=== PATIENT | female | born 1995 | race Caucasian/White ===

== ENCOUNTER 2020-12-23 04:35 | Emergency (ER) | payer OTHER ==
[2020-12-23 05:25] LABS: BASOPHILS # (AUTO) 0.1 10^3/uL (0.0-0.1); BASOPHILS % (AUTO) 0.7 %; EOSINOPHILS # (AUTO) 0.1 10^3/uL (0.0-0.7); EOSINOPHILS % (AUTO) 1.7 %; HCT - HEMATOCRIT 39.2 % (37.0-47.0); HGB - HEMOGLOBIN 13.3 g/dL (12.0-16.0); LYMPHOCYTES # (AUTO) 0.9 10^3/uL (1.5-3.5); LYMPHOCYTES % (AUTO) 11.4 %; MEAN CORPUSCULAR HEMOGLOBIN 28.7 pg (27.0-31.0); MEAN CORPUSCULAR HGB CONC 33.9 g/dL (32.0-36.0); MEAN CORPUSCULAR VOLUME 84.5 fL (81.0-99.0); MEAN PLATELET VOLUME 10.3 fL (7.9-10.8); MONOCYTES # (AUTO) 0.5 10^3/uL (0.0-1.0); MONOCYTES % (AUTO) 5.8 %; NEUTROPHILS # (AUTO) 6.6 10^3/uL (1.5-6.6); PLT - PLATELET COUNT 252 10^3/uL (130-450); RED BLOOD COUNT 4.64 10^6/uL (4.20-5.40); RED CELL DISTRIBUTION WIDTH 11.9 % (12.0-15.0); WHITE BLOOD COUNT 8.2 x10^3/uL (4.8-10.8)
[2020-12-23 05:38] LABS: ACETAMINOPHEN < 10 ug/mL (10-30); BUN - BLOOD UREA NITROGEN 9 mg/dL (6-20); CALCIUM 9.3 mg/dL (8.5-10.3); CARBON DIOXIDE - CO2 23 mmol/L (21-32); CHLORIDE 106 mmol/L (101-111); CREATININE 0.8 mg/dL (0.4-1.0); ETOH - ETHANOL < 5.0 mg/dL; GFR - MDRD 86 (>89); GLUCOSE 108 mg/dL (70-100); POTASSIUM 3.7 mmol/L (3.5-5.0); SALICYLATE < 6.0 mg/dL; SODIUM 137 mmol/L (135-145)
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
[2020-12-23 06:52] LABS: HCG,QUALITATIVE BLOOD NEGATIVE
[2020-12-23 06:55] LABS: MUDS CUTOFF CONCENTRATIONS CUTOFF CONC BELOW:
[2020-12-23 06:56] LABS: BILIRUBIN,URINE NEGATIVE (NEGATIVE); GLUCOSE, URINE (UA) NEGATIVE (NEGATIVE); KETONES,URINE (UA) NEGATIVE (NEGATIVE); LEUKOCYTE ESTERASE, URINE NEGATIVE (NEGATIVE); NITRITE,URINE NEGATIVE (NEGATIVE); OCCULT BLOOD,URINE NEGATIVE (NEGATIVE); PROTEIN,URINE NEGATIVE (NEGATIVE); UROBILINOGEN,URINE 0.2 (NORMAL) E.U./dL (NORMAL)
[2020-12-23 07:04] LABS: CLARITY,URINE CLEAR (CLEAR); HCG UR QUAL NEGATIVE
[2020-12-23 07:08] LABS: THC CANNABINOID SCREEN, URINE POSITIVE (NEGATIVE)
[2020-12-23 07:09] LABS: AMPHETAMINE SCREEN,URINE NEGATIVE (NEGATIVE); BARBITURATE SCREEN,UR NEGATIVE (NEGATIVE); BENZODIAZEPINES SCREEN, URINE NEGATIVE (NEGATIVE); COCAINE SCREEN URINE NEGATIVE (NEGATIVE); METHADONE SCREEN, URINE NEGATIVE (NEGATIVE); METHAMPHETAMINES SCREEN, URINE NEGATIVE (NEGATIVE); OPIATE SCREEN, URINE NEGATIVE (NEGATIVE); OXYCODONE SCREEN, URINE NEGATIVE (NEGATIVE); PROPOXYPHENE SCREEN, URINE NEGATIVE (NEGATIVE); TRICYCLIC ANTIDEPRESSANT,URINE NEGATIVE (NEGATIVE)
--- NOTE | 2020-12-23 08:18 | XRAY Report ---
PROCEDURE: Sacrum/Coccyx INDICATIONS: coccyx TECHNIQUE: 3 views of the sacrum and coccyx acquired. COMPARISON: None FINDINGS: Bones: No fractures or dislocations. No suspicious bony lesions. Soft tissues: Visualized bowel gas pattern is normal. No suspicious soft tissue densities. IMPRESSION: No trauma found. Source of pain is not seen. Follow-up MR scanning may be warranted for more accurate assessment. Reviewed by: Marlon Snow MD on 12/23/2020 8:16 AM PDT Approved by: Marlon Snow MD on 12/23/2020 8:16 AM PDT Station ID: [id number]
[2020-12-23 08:22] VITALS: BP 130/80
[2020-12-23] MEDS ORDERED: IBUPROFEN 600 MG TABLET PO STA (08:27)
--- NOTE | 2020-12-23 08:30 | TELEPSYCH PHYS NOTE ---
Telepsych Note - PSYCHIATRIC HX/TREATMENT HX Psychiatric: Depression, Anxiety, Panic attacks - DRUG/ALCOHOL HX ETOH Use: Wine - MEDICAL HX Does the pt have a hx of MRSA?: No Neurological History: Migraines Eyes, Ears, Nose, Throat: Other Cardiovascular: None Respiratory: None Skin: Psoriasis Endocrine/Autoimmune: None Gastrointestinal: GERD Urinary: None Musculoskeletal: None Blood Disorders: None - HOME MEDICATIONS Home Meds (as last confirmed): Patient History Medication Instructions Recorded Confirmed Ascorbic Acid/Elderberry Fruit 1 each PO DAILY 12/23/20 12/23/20 [Elderberry-Vit C 50-100 mg Chw] Bupropion HCl [Wellbutrin Xl] 300 mg PO DAILY 12/23/20 12/23/20 Cetirizine [ZyrTEC] 10 mg PO DAILY 12/23/20 12/23/20 Cholecalciferol [Vitamin D3] 5,000 unit PO DAILY 12/23/20 12/23/20 Ibuprofen 400 mg PO Q6HR PRN 12/23/20 12/23/20 Magnesium Citrate 100 mg PO DAILY PRN 12/23/20 12/23/20 Venlafaxine ER [Effexor ER] 75 mg ORAL DAILY 12/23/20 12/23/20 traZODone [Desyrel] 50 mg ORAL HS PRN 12/23/20 12/23/20 - ALLERGIES Allergies (as last confirmed): Allergies Allergy/AdvReac Type Severity Reaction Status Date / Time Penicillins Allergy Intermediate Anaphylaxis Verified 12/23/20 04:47 sulfamethoxazole Allergy Intermediate Anaphylaxis Verified 12/23/20 04:47 [From Bactrim] trimethoprim [From Bactrim] Allergy Intermediate Anaphylaxis Verified 12/23/20 04:47 apple Allergy Mild Hives Verified 12/23/20 04:47
== END 2020-12-23 08:59 | disposition home or self-care (01) ==
LOC: ED 04:35
DX: F41.9 Anxiety disorder, unspecified (principal); F32.9 Major depressive disorder, single episode, unspecified; M53.3 Sacrococcygeal disorders, not elsewhere classified
CPT/HCPCS: 36415; 72220; 80048; 80306; 80307; 80320; 80329; 81003; 81025; 84443; 84703; 85025; 99284; A9270; Q3014; 81001; 87086

== ENCOUNTER 2021-10-28 10:39 | Outpatient (CLI) | payer OTHER | END 2021-10-28 10:40 | disposition home or self-care (01) | LOC: DI 10:39 | PROVIDERS: ATTEND Physician Assistant | DX: R01.1 Cardiac murmur, unspecified (principal); Z82.69 Family history of other diseases of the musculoskeletal system and connective tissue | CPT/HCPCS: 93306 ==

== ENCOUNTER 2022-09-28 13:15 | Outpatient (CLI) | payer OTHER ==
[2022-09-29 13:53] LABS: BILIRUBIN,URINE NEGATIVE (NEGATIVE); GLUCOSE, URINE (UA) NEGATIVE (NEGATIVE); KETONES,URINE (UA) NEGATIVE (NEGATIVE); LEUKOCYTE ESTERASE, URINE NEGATIVE (NEGATIVE); NITRITE,URINE NEGATIVE (NEGATIVE); OCCULT BLOOD,URINE NEGATIVE (NEGATIVE); PROTEIN,URINE NEGATIVE (NEGATIVE); UROBILINOGEN,URINE 0.2 (NORMAL) E.U./dL (NORMAL)
[2022-09-29 14:01] LABS: BACTERIA,URINE Few /HPF (None Seen); CLARITY,URINE HAZY (CLEAR); RBC,URINE 0-5 /HPF (0-5); SQUAMOUS EPITHELIAL CELL,UR MOD Squamous (<= Few); WBC,URINE 0-3 /HPF (0-5)
== END 2022-09-28 23:59 | disposition home or self-care (01) ==
LOC: LAB.WC 13:15
PROVIDERS: ATTEND Obstetrics & Gynecology
DX: Z34.90 Encounter for supervision of normal pregnancy, unspecified, unspecified trimester (principal)
CPT/HCPCS: 81001; 87086

== ENCOUNTER 2022-10-06 20:55 | Outpatient (CLI) | payer OTHER ==
--- NOTE | 2022-10-07 09:35 | Ultrasound Report ---
PROCEDURE: OB First Trimester INDICATIONS: POSITIVE TEST OUTSIDE/PRIOR DATING DATA: Last menstrual period (LMP): Unknown. First dating scan (date and location): Today 10/06/2022 Estimated date of delivery (YSABEL) from first dating scan: 03/27/2023. TECHNIQUE: Real-time scanning was performed of the fetus and maternal pelvic organs, with image documentation. COMPARISON: FINDINGS: Heart rate is 153 bpm. Cervix is closed. [place]-rump length is 9.3 cm. BPD is 3.17 cm. Head circumfere nce is 11.76 cm. Abdominal circumference is 9.1 cm. Femur length is 1.7 cm. Ultrasound age of 15 weeks and 3 days. Adnexal structures within normal limits. IMPRESSION: Living intrauterine gestation with heart tones. Ultrasound age is 15 weeks and 3 days. Follow-u p recommended for anatomic survey at 20 weeks. Reviewed by: Mathieu Aguilar MD on 10/07/2022 9:34 AM PST Approved by: Mathieu Aguilar MD on 10/07/2022 9:34 AM PST Station ID: [id number]
== END 2022-10-06 20:56 | disposition home or self-care (01) ==
LOC: DI 20:55
PROVIDERS: ATTEND Obstetrics & Gynecology
DX: Z34.92 Encounter for supervision of normal pregnancy, unspecified, second trimester (principal); Z3A.15 15 weeks gestation of pregnancy

== ENCOUNTER 2022-10-27 08:00 | Outpatient (CLI) | payer OTHER ==
[2022-10-28 01:20] LABS: CHLAMYDIA TRACHOMATIS DNA NEGATIVE (NEGATIVE); NEISSERIA GONORRHOEAE DNA NEGATIVE (NEGATIVE); TRICHOMONAS VAGINALIS DNA NEGATIVE (NEGATIVE)
== END 2022-10-27 23:59 | disposition home or self-care (01) ==
LOC: LAB.WC 08:00
PROVIDERS: ATTEND Obstetrics & Gynecology
DX: Z34.90 Encounter for supervision of normal pregnancy, unspecified, unspecified trimester (principal)
CPT/HCPCS: 36415; 85025; 86592; 86762; 86787; 86803; 86850; 86900; 86901; 87340; 87389; 87491; 87591; 87661

== ENCOUNTER 2022-10-27 14:26 | Outpatient (CLI) | payer OTHER ==
[2022-10-27 14:46] LABS: BASOPHILS # (AUTO) 0.1 10^3/uL (0.0-0.1); BASOPHILS % (AUTO) 0.3 %; EOSINOPHILS # (AUTO) 0.2 10^3/uL (0.0-0.7); EOSINOPHILS % (AUTO) 1.4 %; HCT - HEMATOCRIT 38.9 % (37.0-47.0); HGB - HEMOGLOBIN 13.1 g/dL (12.0-16.0); LYMPHOCYTES # (AUTO) 1.2 10^3/uL (1.5-3.5); LYMPHOCYTES % (AUTO) 7.9 %; MEAN CORPUSCULAR HEMOGLOBIN 28.9 pg (27.0-31.0); MEAN CORPUSCULAR HGB CONC 33.7 g/dL (32.0-36.0); MEAN CORPUSCULAR VOLUME 85.7 fL (81.0-99.0); MEAN PLATELET VOLUME 10.4 fL (7.9-10.8); MONOCYTES # (AUTO) 0.7 10^3/uL (0.0-1.0); MONOCYTES % (AUTO) 4.2 %; NEUTROPHILS # (AUTO) 13.3 10^3/uL (1.5-6.6); NEUTROPHILS % (AUTO) 85.4 %; PLT - PLATELET COUNT 229 10^3/uL (130-450); RED BLOOD COUNT 4.54 10^6/uL (4.20-5.40); RED CELL DISTRIBUTION WIDTH 13.2 % (12.0-15.0); WHITE BLOOD COUNT 15.6 x10^3/uL (4.8-10.8)
[2022-10-28 06:10] LABS: HBsAG SCREEN Negative (Negative); RPR Non Reactive (Non Reactive)
[2022-10-28 07:10] LABS: VARICELLA-ZOSTER AB IGG 848 index (Immune >165)
[2022-10-29 04:09] LABS: HCV AB Non Reactive (Non Reactive)
[2022-10-29 15:09] LABS: HIV SCREEN 4TH GENERATION Non Reactive (Non Reactive)
== END 2022-10-27 14:27 | disposition home or self-care (01) ==
LOC: LAB 14:26
PROVIDERS: ATTEND Obstetrics & Gynecology
DX: Z34.90 Encounter for supervision of normal pregnancy, unspecified, unspecified trimester (principal)
CPT/HCPCS: 36415; 85025; 86592; 86762; 86787; 86803; 86850; 86900; 86901; 87340; 87389

== ENCOUNTER 2022-11-09 10:16 | Outpatient (CLI) | payer OTHER ==
[2022-11-11 20:07] LABS: AFP MOM 1.93 (.); AFP VALUE 78.7 ng/mL (.); DIA MOM 0.79 (.); DIA VALUE 107.42 pg/mL (.); DSR (BY AGE) 1 IN 732 (.); DSR (SECOND TRIMESTER) 1 IN 10000 (.); GEST. AGE ON COLLECTION DATE 18.4 WEEKS (.); GESTAT. AGE METHOD Ultrasound (.); HCG MOM 0.87 (.); HCG VALUE 21115 mIU/mL (.); INSULIN DEP DIABETES No (.); MATERNAL AGE AT EDD 29.6 yr (.); MULTIPLE GESTATION No (.); OPEN SPINA BIFIDA RISK 1 IN 943 (.); RACE Caucasian (.); RESULTS Report (.); TEST RESULTS *Screen Negative* (.); TRISOMY 18 RISK Not increased (.); UE3 MOM 1.17 (.); UE3 VALUE 1.71 ng/mL (.); WEIGHT 190 lbs (.)
== END 2022-11-09 10:17 | disposition home or self-care (01) ==
LOC: LAB 10:16
PROVIDERS: ATTEND Obstetrics & Gynecology
DX: Z34.90 Encounter for supervision of normal pregnancy, unspecified, unspecified trimester (principal); Z36.89 Encounter for other specified antenatal screening
CPT/HCPCS: 36415; 81511

== ENCOUNTER 2022-11-23 20:41 | Outpatient (CLI) | payer OTHER ==
--- NOTE | 2022-11-24 09:57 | Ultrasound Report ---
PROCEDURE: OB Detailed Eval INDICATIONS: SUPERVISION OF OUTSIDE/PRIOR DATING DATA: Last menstrual period (LMP): Unknown. First dating scan (date and location): October 06, 2022 Estimated date of delivery (YSABEL) from first dating scan: 03/27/2023. TECHNIQUE: Real-time scanning was performed of the fetus, with image documentation and biometric measurements. COMPARISON: October 06, 2022 FINDINGS: General: A single living intrauterine gestation is present. Presentation: Vertex Placenta: Placental position is anterior, without previa. Amniotic fluid index: 18.2 cm, within normal limits for gestational age. heart rate: 153 beats per minute. Maternal cervical canal: 4 cm long; normal length is 2.5 cm or more. biometrics: Biparietal diameter: 5.5 cm, 22 weeks and 6 days Head circumference: 20.8 cm, 22 weeks and 6 days Abdominal circumference: 18.5 cm, 23 weeks and 3 days Femur length: 4 cm, 22 weeks Estimated gestational age from initial scan: 22 weeks and 2 days Composite gestational age from present scan: 22 weeks and 6 days Estimated weight and percentile: 563 g, 83rd percentile Measurement variability in biometric dating: +/- 10 days from 12-20 weeks gestation, +/- 2 weeks from 20-30 weeks gestation, +/- 3 weeks at 30 weeks gestation or later. Anatomic survey: Neuro: Ventricles are normal at less than 10 mm. Cisterna magna is normal at 3-11 mm. Cerebellum is normal in size and morphology. Nuchal skin fold: Normal at less than 6 mm between 14 and 20 weeks gestational age. Face: Nose and lips, facial profile are normal. Spine: No evidence for spina bifida. Heart: 4-chambered heart is present, with normal ventricular outflow tracts. Diaphragm: Diaphragm is intact. Stomach: Left-sided stomach is present. Kidneys: No hydronephrosis. Normal is less than 5 mm in 2nd trimester, less than 7 mm in 3rd trimester. Cord: 3 vessel cord has orthotopic insertion. Bladder: Normal in size. Extremities: All 4 extremities are visualized. IMPRESSION: Living intrauterine gestation at 22 weeks and 6 days, with concordant biometry at the 83rd percentile on today's study. Normal and complete anatomic survey. Reviewed by: Mathieu Aguilar MD on 11/24/2022 9:56 AM PDT Approved by: Mathieu Aguilar MD on 11/24/2022 9:56 AM PDT Station ID: [id number]
== END 2022-11-23 20:42 | disposition home or self-care (01) ==
LOC: DI 20:41
PROVIDERS: ATTEND Obstetrics & Gynecology
DX: Z36.89 Encounter for other specified antenatal screening (principal); Z34.92 Encounter for supervision of normal pregnancy, unspecified, second trimester

== ENCOUNTER 2022-12-22 14:12 | Outpatient (CLI) | payer OTHER ==
[2022-12-22 14:44] LABS: CREATININE,URINE 66.4 mg/dL; PROTEIN/CREATININE RATIO,URINE 0.1 (<=0.2)
[2022-12-22 15:31] LABS: HCT - HEMATOCRIT 37.6 % (37.0-47.0); HGB - HEMOGLOBIN 12.5 g/dL (12.0-16.0); MEAN CORPUSCULAR HEMOGLOBIN 29.5 pg (27.0-31.0); MEAN CORPUSCULAR HGB CONC 33.2 g/dL (32.0-36.0); MEAN CORPUSCULAR VOLUME 88.7 fL (81.0-99.0); RED BLOOD COUNT 4.24 10^6/uL (4.20-5.40)
[2022-12-22 15:41] LABS: ALBUMIN/GLOBULIN RATIO 0.9 (1.0-2.2); BILIRUBIN,TOTAL 0.3 mg/dL (0.2-1.0); CALCIUM 9.2 mg/dL (8.5-10.3); CREATININE 0.6 mg/dL (0.4-1.0); POTASSIUM 3.3 mmol/L (3.5-5.0); TOTAL PROTEIN 6.4 g/dL (6.7-8.2); URIC ACID 3.7 mg/dL (2.6-7.2)
== END 2022-12-22 14:13 | disposition home or self-care (01) ==
LOC: LAB 14:12
PROVIDERS: ATTEND Obstetrics & Gynecology
DX: O99.891 Other specified diseases and conditions complicating pregnancy (principal); R03.0 Elevated blood-pressure reading, without diagnosis of hypertension
CPT/HCPCS: 36415; 80053; 82570; 82950; 84156; 84550; 85027

== ENCOUNTER 2023-01-05 14:27 | Outpatient (CLI) | payer OTHER ==
[2023-01-05 15:11] LABS: CREATININE,URINE 57.1 mg/dL; PROTEIN/CREATININE RATIO,URINE 0.1 (<=0.2)
[2023-01-05 15:12] LABS: ALBUMIN/GLOBULIN RATIO 0.9 (1.0-2.2); BILIRUBIN,TOTAL 0.5 mg/dL (0.2-1.0); CALCIUM 8.7 mg/dL (8.5-10.3); CREATININE 0.5 mg/dL (0.4-1.0); POTASSIUM 3.6 mmol/L (3.5-5.0); TOTAL PROTEIN 6.5 g/dL (6.7-8.2); URIC ACID 3.6 mg/dL (2.6-7.2)
== END 2023-01-05 14:28 | disposition home or self-care (01) ==
LOC: LAB 14:27
PROVIDERS: ATTEND Nurse Practitioner
DX: R60.0 Localized edema (principal)
CPT/HCPCS: 36415; 80053; 82570; 84156; 84550

== ENCOUNTER 2023-01-19 14:36 | Outpatient (CLI) | payer OTHER ==
[2023-01-19 15:02] LABS: HCT - HEMATOCRIT 38.4 % (37.0-47.0); MEAN CORPUSCULAR HEMOGLOBIN 29.7 pg (27.0-31.0); MEAN CORPUSCULAR HGB CONC 33.9 g/dL (32.0-36.0); MEAN CORPUSCULAR VOLUME 87.7 fL (81.0-99.0); MEAN PLATELET VOLUME 10.5 fL (7.9-10.8); RED BLOOD COUNT 4.38 10^6/uL (4.20-5.40); RED CELL DISTRIBUTION WIDTH 12.7 % (12.0-15.0); WHITE BLOOD COUNT 15.2 x10^3/uL (4.8-10.8)
[2023-01-19 15:29] LABS: ALBUMIN 3.1 g/dL (3.2-5.5); ALBUMIN/GLOBULIN RATIO 0.9 (1.0-2.2); BILIRUBIN,TOTAL 0.4 mg/dL (0.2-1.0); CALCIUM 8.7 mg/dL (8.5-10.3); CREATININE 0.5 mg/dL (0.4-1.0); POTASSIUM 3.6 mmol/L (3.5-5.0); TOTAL PROTEIN 6.6 g/dL (6.7-8.2); URIC ACID 3.6 mg/dL (2.6-7.2)
[2023-01-19 15:36] LABS: PROTEIN/CREATININE RATIO,URINE 0.2 (<=0.2)
[2023-01-19 15:41] LABS: THYROID STIMULATING HORMONE 1.85 uIU/mL (0.34-5.60)
== END 2023-01-19 14:37 | disposition home or self-care (01) ==
LOC: RT 14:36
PROVIDERS: ATTEND Nurse Practitioner
DX: I49.9 Cardiac arrhythmia, unspecified (principal); R60.0 Localized edema
CPT/HCPCS: 36415; 80053; 82570; 84156; 84443; 84550; 85027; 93005

== ENCOUNTER 2023-01-26 12:42 | Outpatient (CLI) | payer OTHER ==
--- NOTE | 2023-01-27 10:30 | Ultrasound Report ---
PROCEDURE: OB F/U or Repeat INDICATIONS: UTERINE SIZE DATE DISCREPENCY OUTSIDE/PRIOR DATING DATA: Last menstrual period (LMP): Not available. LMP-based estimated date of delivery (YSABEL): Not available. First dating scan (date and location): 10/06/2022; [facility]. Estimated date of delivery (YSABEL) from first dating scan: 03/27/2023. The below data below was generated using the working YSABEL of 03/27/2023 TECHNIQUE: Real-time scanning was performed of the fetus, with image documentation and biometric measurements. COMPARISON: OB ultrasound, 11/23/2022. FINDINGS: General: A single living intrauterine gestation is present. Presentation: Breech Placenta: Placental position is anterior, without previa. Amniotic fluid index: 18.0 cm; largest pocket 7.2 cm. heart rate: 157 beats per minute. Maternal cervical canal: Closed; 4.3 cm long; normal length is 2.5 cm or more. biometrics: Biparietal diameter: 34 weeks 0 day Head circumference: 34 weeks 3 days Abdominal circumference: 32 weeks 6 days Femur length: 99 weeks 5 days Estimated gestational age from initial scan: 21 weeks 3 days. Composite gestational age from present scan: 22 weeks 5 days Estimated weight and percentile: 1917.5 g; 63.6% Measurement variability in biometric dating: +/- 10 days from 12-20 weeks gestation, +/- 2 weeks from 20-30 weeks gestation, +/- 3 weeks at 30 weeks gestation or more. Other: Not applicable. IMPRESSION: 1. A single living intrauterine gestation with appropriate interval growth. 2. weight at 63.6% for gestational age. Reviewed by: Hudson Saucedo MD on 01/27/2023 10:29 AM PDT Approved by: Hudson Saucedo MD on 01/27/2023 10:29 AM PDT Station ID: [id number]
== END 2023-01-26 12:43 | disposition home or self-care (01) ==
LOC: DI 12:42
PROVIDERS: ATTEND Nurse Practitioner
DX: O26.842 Uterine size-date discrepancy, second trimester (principal); Z3A.22 22 weeks gestation of pregnancy

== ENCOUNTER 2023-02-16 14:25 | Outpatient (CLI) | payer OTHER ==
[2023-02-16 14:42] LABS: HCT - HEMATOCRIT 39.1 % (37.0-47.0); MEAN CORPUSCULAR HEMOGLOBIN 29.1 pg (27.0-31.0); MEAN CORPUSCULAR HGB CONC 33.2 g/dL (32.0-36.0); MEAN CORPUSCULAR VOLUME 87.5 fL (81.0-99.0); MEAN PLATELET VOLUME 10.4 fL (7.9-10.8); RED BLOOD COUNT 4.47 10^6/uL (4.20-5.40); RED CELL DISTRIBUTION WIDTH 12.7 % (12.0-15.0); WHITE BLOOD COUNT 16.2 x10^3/uL (4.8-10.8)
[2023-02-16 14:56] LABS: ALBUMIN/GLOBULIN RATIO 0.9 (1.0-2.2); BILIRUBIN,TOTAL 0.5 mg/dL (0.2-1.0); CALCIUM 9.1 mg/dL (8.5-10.3); CREATININE 0.6 mg/dL (0.4-1.0); POTASSIUM 3.4 mmol/L (3.5-5.0); TOTAL PROTEIN 6.5 g/dL (6.7-8.2)
[2023-02-16 15:01] LABS: PROTEIN/CREATININE RATIO,URINE 0.1 (<=0.2)
== END 2023-02-16 14:26 | disposition home or self-care (01) ==
LOC: LAB 14:25
PROVIDERS: ATTEND Obstetrics & Gynecology
DX: R03.0 Elevated blood-pressure reading, without diagnosis of hypertension (principal)
CPT/HCPCS: 36415; 80053; 82570; 84156; 85027

== ENCOUNTER 2023-02-23 17:57 | Outpatient (CLI) | payer OTHER ==
[2023-02-23 18:20] VITALS: BP 137/85
--- NOTE | 2023-02-24 08:48 | PROCEDURE REPORT ---
- HPI Diagnosis/Indication for NST: Gestational Hypertension Current EDU 03/27/23 Gestation 35 Weeks and 3 Days 1 Para 0 Vital Signs Temperature 97.9 F 02/23/23 18:08 Heart Rate 85 02/23/23 18:08 Respiratory Rate 17 02/23/23 18:08 Blood Pressure 137/85 H 02/23/23 18:08 O2 Saturation 100 02/23/23 18:08 Temperature 97.9 F 02/23/23 18:08 Heart Rate 85 02/23/23 18:08 Respiratory Rate 17 02/23/23 18:08 Blood Pressure 137/85 H 02/23/23 18:08 O2 Saturation 100 02/23/23 18:08 If not protocol: Oxygen Flow, liters/minute - NST Procedure NST Procedure Start Date 02/23/23 Start Time 18:04 Stop Time 18:31 Vibroacoustic Stimulation Used No Patient States Movement Yes EFM: 150s, moderate variability, positive 15x15 accelerations, no decelerations [place]: no contractions NST reactive/Cat 1 Performed and read 02/23/23 - Results and Plan Findings/Impression: 27yo at 35.4w presenting for scheduled NST for gestational hypertension - NST reactive - Follow up as scheduled
== END 2023-02-23 18:48 | disposition home or self-care (01) ==
LOC: WFO 17:57 → FBP 17:59 → WFO 18:48
PROVIDERS: ATTEND Obstetrics & Gynecology
DX: O13.3 Gestational [pregnancy-induced] hypertension without significant proteinuria, third trimester (principal); Z3A.35 35 weeks gestation of pregnancy
CPT/HCPCS: 59025

== ENCOUNTER 2023-02-23 18:42 | Outpatient (CLI) | payer OTHER ==
--- NOTE | 2023-02-24 09:37 | Ultrasound Report ---
PROCEDURE: OB Biophysical Profile INDICATIONS: GESTATIONAL HYPERTENSION OUTSIDE/PRIOR DATING DATA: Last menstrual period (LMP): Unknown. First dating scan (date and location): 10/06/2022 Estimated date of delivery (YSABEL) from first dating scan: 03/27/2023. TECHNIQUE: Real-time scanning was performed of the fetus, with image documentation. Biophysical pro file was also obtained. COMPARISON: 01/26/2023 FINDINGS: General: A single living intrauterine gestation is present. Presentation: Vertex Placenta: Placental position is anterior, without previa. Amniotic fluid index: 12.6 cm, normal for gestational age. heart rate: 143 beats per minute. Estimated gestational age is 35 weeks and 3 days Biophysical profile: Tone: 2 points. Movement: 2 points. Respiration: 0 points. Largest pocket of fluid: 2 points. 68 Umbilical artery Doppler: Ranging from 2.1-3.0, within normal limits. IMPRESSION: BPP 6 out of 8. Normal REYES. Normal umbilical artery Dopplers, SD ratios measuring under 3 Living intrauterine gestation in vertex presentation, clinical dates of 35 weeks and 3 days on presen t scan. Reviewed by: Mathieu Aguilar MD on 02/24/2023 9:36 AM PDT Approved by: Mathieu Aguilar MD on 02/24/2023 9:36 AM PDT Station ID: [id number]
== END 2023-02-23 18:43 | disposition home or self-care (01) ==
LOC: DI 18:42
PROVIDERS: ATTEND Obstetrics & Gynecology
DX: O13.3 Gestational [pregnancy-induced] hypertension without significant proteinuria, third trimester (principal); Z3A.35 35 weeks gestation of pregnancy

== ENCOUNTER 2023-02-27 08:00 | Outpatient (CLI) | payer OTHER | END 2023-02-27 23:58 | disposition home or self-care (01) | LOC: LAB.WC 08:00 | PROVIDERS: ATTEND Nurse Practitioner | DX: Z36.85 Encounter for antenatal screening for Streptococcus B (principal) | CPT/HCPCS: 87081; 87797 ==

== ENCOUNTER 2023-03-02 17:32 | Outpatient (CLI) | payer OTHER ==
--- NOTE | 2023-03-02 19:05 | PROCEDURE REPORT ---
- HPI Diagnosis/Indication for NST: Gestational Hypertension - NST Procedure NST Procedure Start Time 12:44 Stop Time 13:35 - Results and Plan Plan: Patient is a 27-year-old at 36 weeks 3 days gestation here for scheduled NST. NST Performed 03/02/2023 NST Read 03/02/2023 FHT: 140 bpm baseline, moderate variability, accelerations present, no decelerations. Reactive NST [place]: Occasional Diagnosis 1. 36 weeks gestation -Offered cervical exam, but contractions were not felt by patient -BPP 8/10, no points for breathing 2. Gestational hypertension Continue with twice-weekly NST.
[2023-03-02 20:05] VITALS: BP 134/88
== END 2023-03-02 20:14 | disposition home or self-care (01) ==
LOC: WFO 17:32 → FBP 17:34 → WFO 20:14
PROVIDERS: ATTEND Obstetrics & Gynecology
DX: O13.3 Gestational [pregnancy-induced] hypertension without significant proteinuria, third trimester (principal); Z3A.36 36 weeks gestation of pregnancy
CPT/HCPCS: 59025

== ENCOUNTER 2023-03-02 18:45 | Outpatient (CLI) | payer OTHER ==
--- NOTE | 2023-03-03 10:56 | Ultrasound Report ---
PROCEDURE: OB Biophysical Profile INDICATIONS: GESTATIONAL HYPERTENSION OUTSIDE/PRIOR DATING DATA: Last menstrual period (LMP): Unknown. LMP-based estimated date of delivery (YSABEL): Unknown. First dating scan (date and location): 10/06/2022. Estimated date of delivery (YSABEL) from first dating scan: 03/27/2023. The below data below was generated using the working YSABEL of 03/27/2023 TECHNIQUE: Real-time scanning was performed of the fetus, with image documentation and biometric [place] surements. Biophysical profile was also obtained. Endovaginal scanning: None COMPARISON: None. FINDINGS: General: A single living intrauterine gestation is present. Presentation: Vertex Placenta: Placental position is anterior, without previa. Amniotic fluid index: 10.3 cm, normal for gestational age. heart rate: 150 beats per minute. Maternal cervical canal: 5.5 cm long; normal length is 2.5 cm or more. Estimated gestational age from initial scan: 36 week 3 day Biophysical profile: Tone: 2 points. Movement: 2 points. Respiration: 0 points. Largest pocket of fluid: 2 points. Umbilical artery Doppler: 1.9, 1.9, 2.6 IMPRESSION: Single live intrauterine consistent with 36 week 3 day gestation. Biophysical profile score 6 out of 8. No respiratory motion observed during the exam. Reviewed by: Edmundo Burrows MD on 03/03/2023 9:55 AM MARLYN Approved by: Edmundo Burrows MD on 03/03/2023 9:55 AM MARLYN Station ID: [id number]
== END 2023-03-02 23:59 | disposition home or self-care (01) ==
LOC: DI 18:45
PROVIDERS: ATTEND Obstetrics & Gynecology
DX: O13.3 Gestational [pregnancy-induced] hypertension without significant proteinuria, third trimester (principal); Z3A.36 36 weeks gestation of pregnancy

== ENCOUNTER 2023-03-06 20:04 | Inpatient (IN) | payer OTHER ==
[2023-03-06] MEDS ORDERED: NIFEdipine 10 MG CAPSULE PO PRN (20:32)
[2023-03-06] MEDS ORDERED: fentaNYL 100 MCG/2 ML VIAL IVP PRN (20:32)
[2023-03-06] MEDS ORDERED: hydrALAZINE INJ 20 MG/ML VIAL IVP PRN ×2 (20:32)
[2023-03-06] MEDS ORDERED: OXYTOCIN/SODIUM CHLORIDE 500 ML IV PRN (20:32)
[2023-03-06] MEDS ORDERED: lidocaine 1% 20 ML MDV ID PRN (20:32)
[2023-03-06] MEDS ORDERED: OXYTOCIN 10 UNIT/ML VIAL IM PRN (20:32)
[2023-03-06] MEDS ORDERED: ceFAZolin 2 GM in SODIUM CHLORIDE 0.9% MINIBAG 100 ML IV ONE (20:32)
[2023-03-06] MEDS ORDERED: SODIUM CHLORIDE FLUSH 0.9% 10 ML SYRINGE IVP PRN (20:32)
[2023-03-06] MEDS ORDERED: TRANEXAMIC ACID IN NACL 1,000 MG/100 ML BAG IV PRN (20:32)
[2023-03-06] MEDS ORDERED: METHYLERGONOVINE 0.2 MG/ML VIAL IM PRN (20:32)
[2023-03-06] MEDS ORDERED: LABETALOL 20 MG/4 ML SYRINGE IVP PRN ×3 (20:32)
[2023-03-06] MEDS ORDERED: miSOPROStoL 200 MCG TABLET PR PRN (20:32)
[2023-03-06] MEDS ORDERED: miSOPROStoL 200 MCG TABLET BC PRN (20:32)
[2023-03-06] MEDS ORDERED: CARBOPROST TROMETHAMINE 250 MCG/ML AMP IM PRN (20:32)
[2023-03-06] MEDS ORDERED: SODIUM CHLORIDE FLUSH 0.9% 10 ML SYRINGE IVP SCH (21:00)
[2023-03-06] MEDS ORDERED: OXYTOCIN/SODIUM CHLORIDE 500 ML IV SCH (21:00)
--- NOTE | 2023-03-06 21:06 | HISTORY & PHYSICAL EXAMINATION ---
Admit History - Visit Reason Visit Reason: Other (Induction of labor for GHTN) - : 1 Parity: 0 Care: positive: [facility] Risk/History: positive: induced HTN Smoking Status: Never smoker - Mother's Labs Mother's Blood Type: positive: O Mother's RH: positive: Positive GBS: positive: Group B Strep Positive Rubella Status: positive: Immune - Other Maternal History Other Maternal History: Med: Depression/Anxiety Surg: Nasal cauterization Fam: Asthma, DM Social: , denies JANNIE - HPI Diagnosis/Indication for NST: Gestational Hypertension - NST Procedure NST Procedure Start Time 19:15 Stop Time 19:51 EFM: 140s, moderate variability, positive 15x15 accelerations, no decelerations [place]: no contractions NST reactive/Cat 1 This was a direct admission for gestational hypertension. Performed and read 03/06/23 Meds/Allgy - Home Medications Home Medications: Ambulatory Orders Medication Instructions Recorded Confirmed Ascorbic Acid/Elderberry Fruit 1 each PO DAILY 12/23/20 12/23/20 [Elderberry-Vit C 50-100 mg Chw] Cetirizine [ZyrTEC] 10 mg PO DAILY 12/23/20 12/23/20 Cholecalciferol [Vitamin D3] 5,000 unit PO DAILY 12/23/20 12/23/20 Ibuprofen 400 mg PO Q6HR PRN 12/23/20 12/23/20 Lidocaine Patch 5% [Lidoderm Patch] 1 patch TOP DAILY PRN #10 patch 12/23/20 Magnesium Citrate 100 mg PO DAILY PRN 12/23/20 12/23/20 Venlafaxine ER [Effexor ER] 75 mg ORAL DAILY 12/23/20 12/23/20 Venlafaxine [Effexor] 75 mg PO DAILY #30 tablet 12/23/20 buPROPion HCL [Wellbutrin Xl] 300 mg PO DAILY 12/23/20 12/23/20 traZODone [Desyrel] 50 mg ORAL HS PRN 12/23/20 12/23/20 traZODone [Desyrel] 50 mg PO HS PRN #30 tablet 12/23/20 Labetalol [Trandate] 100 mg PO BID #60 tablet 02/27/23 - Allergies Allergies/Adverse Reactions: Allergies Allergy/AdvReac Type Severity Reaction Status Date / Time Penicillins Allergy Intermediate Anaphylaxis Verified 12/23/20 04:47 sulfamethoxazole Allergy Intermediate Anaphylaxis Verified 12/23/20 04:47 [From Bactrim] trimethoprim [From Bactrim] Allergy Intermediate Anaphylaxis Verified 12/23/20 04:47 apple Allergy Mild Hives Verified 12/23/20 04:47 Physical - Monitoring Heart Rate Baseline: 140 Strip Review: positive: Category I - Presentation Presentation: positive: Vertex (Anterior, EFW 3000g) - Vaginal Exam Membranes: positive: Membranes intact Dilation (in cm): closed Effacement (%): 50 Station: positive: -3 Cervical Position: positive: Midposition Plan for Labor - Plan For Labor I expect patient to be DC'd or transferred within 96 hours.: Yes Plan for Labor: 27yo at 37w by 15w US admitted for IOL for gestational hypertension - Admit - T&S, CBC, CMP, urine PCR - Plan for misoprostol followed by Pitocin - Anticipate tomorrow or following day
[2023-03-06] MEDS: miSOPROStoL 100 MCG TABLET BC SCH (21:35)
[2023-03-06 21:56] LABS: BASOPHILS % (AUTO) 0.3 %; EOSINOPHILS # (AUTO) 0.3 10^3/uL (0.0-0.7); EOSINOPHILS % (AUTO) 1.6 %; HCT - HEMATOCRIT 37.3 % (37.0-47.0); HGB - HEMOGLOBIN 12.6 g/dL (12.0-16.0); LYMPHOCYTES # (AUTO) 1.4 10^3/uL (1.5-3.5); LYMPHOCYTES % (AUTO) 8.8 %; MEAN CORPUSCULAR HEMOGLOBIN 29.6 pg (27.0-31.0); MEAN CORPUSCULAR HGB CONC 33.8 g/dL (32.0-36.0); MEAN CORPUSCULAR VOLUME 87.6 fL (81.0-99.0); MEAN PLATELET VOLUME 11.1 fL (7.9-10.8); MONOCYTES % (AUTO) 6.3 %; NEUTROPHILS # (AUTO) 12.7 10^3/uL (1.5-6.6); NEUTROPHILS % (AUTO) 81.4 %; PLT - PLATELET COUNT 209 10^3/uL (130-450); RED BLOOD COUNT 4.26 10^6/uL (4.20-5.40); RED CELL DISTRIBUTION WIDTH 13.2 % (12.0-15.0); WHITE BLOOD COUNT 15.6 x10^3/uL (4.8-10.8)
[2023-03-06 22:09] LABS: ALBUMIN 2.8 g/dL (3.2-5.5); ALBUMIN/GLOBULIN RATIO 0.8 (1.0-2.2); BILIRUBIN,TOTAL 0.4 mg/dL (0.2-1.0); CALCIUM 8.9 mg/dL (8.5-10.3); CREATININE 0.6 mg/dL (0.4-1.0); POTASSIUM 3.6 mmol/L (3.5-5.0); TOTAL PROTEIN 6.1 g/dL (6.7-8.2)
[2023-03-06] MEDS: LABETALOL 100 MG TABLET PO SCH (22:25)
[2023-03-07] MEDS: miSOPROStoL 100 MCG TABLET BC SCH ×2 (01:39→07:59)
[2023-03-07] MEDS: LACTATED RINGERS 1,000 ML IV SCH (04:04)
[2023-03-07] MEDS ORDERED: ceFAZolin 1 GM in SODIUM CHLORIDE 0.9% MINIBAG 100 ML IV SCH (05:00)
[2023-03-07] MEDS: buPROPion SR 150 MG TABLET PO SCH ×2 (08:58→22:12)
[2023-03-07] MEDS: CETIRIZINE 10 MG TABLET PO SCH (08:58)
[2023-03-07] MEDS: LABETALOL 100 MG TABLET PO SCH ×2 (08:58→22:11)
--- NOTE | 2023-03-07 10:44 | PROVIDER PROGRESS NOTE ---
Labor Progress Note - Uterine Monitoring Uterine Monitoring Mode: positive: External toco Contraction Frequency (min/apart): irregular Contraction Intensity: positive: Mild, Irritability Uterine Resting Tone: positive: Soft - Monitoring Monitor Mode: positive: External ultrasound Heart Rate Baseline: 145 Heart Rate Variability: positive: Moderate (6-25 bmp) Accelerations: positive: Present, 15x15 Decelerations: positive: None Strip Review: positive: Category I - Labor Progress Note Labor Progress Note/Additional Text: Assumed care at 0800. Last check at [address] Weir showed cervix was still close. Received third dose of misoprostol. Continues to have mild contractions and FHT is category 1. Will continue at this time.
--- NOTE | 2023-03-07 18:47 | PROVIDER PROGRESS NOTE ---
Labor Progress Note - Uterine Monitoring Uterine Monitoring Mode: positive: External toco Contraction Frequency (min/apart): Irregular sometimes every 2-3 minutes. Contraction Intensity: positive: Moderate Uterine Resting Tone: positive: Soft - Monitoring Monitor Mode: positive: External ultrasound Heart Rate Baseline: 145 Heart Rate Variability: positive: Moderate (6-25 bmp) Accelerations: positive: Present, 15x15 Decelerations: positive: None Strip Review: positive: Category I - Vaginal Exam Dilation (in cm): 1 Effacement (%): 30 Station: -3 Cervical Position: Posterior - Labor Progress Note Labor Progress Note/Additional Text: Patient feeling contractions but comfortable. CRB was previously placed after discussion and frequent contractions preventing additional doses misoprostol. Cook balloon has 80 uterine and 80 vaginally. We will consider oxytocin for augmentation. Overall reassuring. We will continue current management.
[2023-03-07] MEDS: VANCOMYCIN INJ 2 GM in SODIUM CHLORIDE 0.9% 500 ML IV SCH (22:12)
--- NOTE | 2023-03-08 05:50 | PROVIDER PROGRESS NOTE ---
Labor Progress Note - Uterine Monitoring Uterine Monitoring Mode: positive: External toco Contraction Frequency (min/apart): 3-6 Contraction Intensity: positive: Moderate Uterine Resting Tone: positive: Soft - Monitoring Monitor Mode: positive: External ultrasound Heart Rate Baseline: 140 Heart Rate Variability: positive: Moderate (6-25 bmp) Accelerations: positive: Present, 15x15 Decelerations: positive: None - Vaginal Exam Dilation (in cm): 4 Effacement (%): 60 Station: -2 - Labor Progress Note Labor Progress Note/Additional Text: head is well engaged. Discussed amniotomy with patient and she agreed. Amniotomy performed with a small amount of clear fluid. Fetus doing well with a category 1 tracing. She does have periods of minimal variability, but continues to have accelerations and returns to moderate variability and category 1. Contractions have spaced out after CRB removal. Discussed recheck in 2 hours and placement of IUPC if unchanged. Labor summary: Induction of labor for gestational hypertension. 3 doses of misoprostol. Cervical ripening balloon. Amniotomy with clear fluid.
[2023-03-08] MEDS: VANCOMYCIN INJ 2 GM in SODIUM CHLORIDE 0.9% 500 ML IV SCH ×2 (08:02→16:51)
[2023-03-08] MEDS: LABETALOL 100 MG TABLET PO SCH (08:48)
[2023-03-08] MEDS: buPROPion XL 150 MG TABLET PO SCH (08:48)
[2023-03-08] MEDS: CETIRIZINE 10 MG TABLET PO SCH (11:21)
--- NOTE | 2023-03-08 11:34 | ANESTHESIA PROCEDURE NOTE ---
Anesth Central Line Template - Central Line Central Line Preparation: Unable to obtain consent (inutbated, sedated, diffi cult IV starts, need access) Central line location: Right IJ Central line type: Triple lumen Central line catheter tip site resides: Superior vena cava (SVC) Central line aftercare: Chlorhexidine disc placed, Secured, Placement confirmed, No pneumothorax, No complications, Bundle checklist complete, Pt tolerated well (sedated), Other Other Info/Details: Secured at 18cm, easily aspirates and flushes blood in ports x3. Bio disc, 2 sutures, tegaderm secure.
--- NOTE | 2023-03-08 13:09 | PROVIDER PROGRESS NOTE ---
Labor Progress Note - Uterine Monitoring Uterine Monitoring Mode: positive: IUPC Contraction Frequency (min/apart): 4-5 Contraction Intensity: positive: Moderate, Moderate to strong Uterine Resting Tone: positive: Soft - Monitoring Monitor Mode: positive: External ultrasound Heart Rate Baseline: 145 Heart Rate Variability: positive: Moderate (6-25 bmp) Accelerations: positive: Present, 15x15 Decelerations: positive: None - Vaginal Exam Dilation (in cm): 6 Effacement (%): 90 - Labor Progress Note Labor Progress Note/Additional Text: Patient has made minimal change since approximately 730 this morning despite amniotomy. We will start oxytocin for hypotonic uterine contractions at this time. Continues to do well with pain control and declines epidural currently. Labor summary: Misoprostol x3 doses for cervical ripening followed by cervical ripening balloon. Amniotomy. Now oxytocin.
[2023-03-08] MEDS ORDERED: OXYTOCIN/SODIUM CHLORIDE 500 ML IV SCH (14:00)
[2023-03-08] MEDS ORDERED: ROPIVACAINE 0.2% 200 MG/100 ML BAG EP ONE ×2 (14:19→20:47)
--- NOTE | 2023-03-08 14:52 | ANESTHESIA ---
Pre-Anesthesia VS, & Labs - Diagnosis term labor, IUP - Procedure epidural for Vital Signs: Temp Pulse Resp BP Pulse Ox O2 Flow Rate 37.2 C 88 18 138/95 H 03/06/23 20:30 03/06/23 20:30 03/06/23 20:30 03/06/23 20:30 Height: 5 ft 5 in Weight (kg): 106.594 kg Body Mass Index: 39.1 BMI Classification: Obese - NPO Last Fluid Intake: t/o day Last Food Intake: lunch - Is Patient ?: Yes - Lab Results Current Lab Results: Laboratory Tests 03/06/23 21:30: Blood Type O POSITIVE, Antibody Screen NEGATIVE 03/06/23 21:30: Sodium 137, Potassium 3.6, Chloride 107, Carbon Dioxide 23, Anion Gap 7.0, BUN 8, Creatinine 0.6, Estimated GFR (MDRD) 118, Glucose 86, Calcium 8.9, Total Bilirubin 0.4, AST 21, ALT 19, Alkaline Phosphatase 122 H, Total Protein 6.1 L, Albumin 2.8 L, Globulin 3.3, Albumin/Globulin Ratio 0.8 L 03/06/23 21:30: WBC 15.6 H, RBC 4.26, Hgb 12.6, Hct 37.3, MCV 87.6, MCH 29.6, MCHC 33.8, RDW 13.2, Plt Count 209, MPV 11.1 H, Neut # (Auto) 12.7 H, Lymph # (Auto) 1.4 L, [place] # (Auto) 1.0, Eos # (Auto) 0.3, Baso # (Auto) 0.0, Absolute Nucleated RBC 0.00, Nucleated RBC % 0.0 Lab results reviewed: Yes Fish Bones: 03/06/23 21:30 03/06/23 21:30 Home Medications and Allergies Active Medications Bupropion HCl (Bupropion Xl 150 Mg Tablet) 150 mg PO DAILY [facility] Last Admin: 03/08/23 08:48 Dose: 150 mg Carboprost Tromethamine (Carboprost Tromethamine 250 Mcg/Ml Amp) 250 mcg IM .ONCE PRN PRN Reason: Hemorrhage Cetirizine HCl (Cetirizine 10 Mg Tablet) 10 mg PO DAILY [facility] Last Admin: 03/08/23 11:21 Dose: 10 mg Fentanyl (Fentanyl 100 Mcg/2 Ml Vial) 50 mcg IVP Q1H PRN PRN Reason: Severe Pain (score 7-10) Hydralazine HCl (Hydralazine Inj 20 Mg/Ml Vial) 5 - 10 mg IVP Q20M PRN; Protocol PRN Reason: SBP> or= 160 OR DBP> or= 110 Hydralazine HCl (Hydralazine Inj 20 Mg/Ml Vial) 10 mg IVP .ONCE PRN; Protocol PRN Reason: SBP> or= 160 OR DBP> or= 110 Oxytocin/Sodium Chloride (Pitocin/Sodium Chloride) 500 mls @ 999 mls/hr IV PRN PRN; Protocol PRN Reason: POST- HEMORR PREVENTION Tranexamic Acid (Tranexamic 1,000 Mg/100ml-Nacl) 1,000 mg in 100 mls @ 600 mls/hr IV Q30M PRN PRN Reason: EBL >1200mL and within 3hr Lactated Ringer's (Lr) 1,000 mls @ 125 mls/hr IV .Q8H [facility] Last Infusion: 03/07/23 04:49 Dose: 0 mls/hr Oxytocin/Sodium Chloride (Pitocin/Sodium Chloride) 500 mls @ 2 mls/hr IV TITR SKINNY; Protocol Last Admin: 03/08/23 13:27 Dose: 2 milliunit/min, 2 mls/hr Vancomycin HCl 2 gm/ Sodium (Chloride) 500 mls @ 250 mls/hr IV Q8H [facility] Last Admin: 03/08/23 08:02 Dose: 250 mls/hr Oxytocin/Sodium Chloride (Pitocin/Sodium Chloride) 500 mls @ 1 mls/hr IV TITR SKINNY; Protocol Labetalol HCl (Labetalol 20 Mg/4 Ml Syringe) 20 - 80 mg IVP Q10M PRN; Protocol PRN Reason: SBP> or= 160 OR DBP> or= 110 Labetalol HCl (Labetalol 20 Mg/4 Ml Syringe) 20 mg IVP .ONCE PRN; Protocol PRN Reason: SBP> or= 160 OR DBP> or= 110 Labetalol HCl (Labetalol 20 Mg/4 Ml Syringe) 20 - 40 mg IVP Q10M PRN; Protocol PRN Reason: SBP> or= 160 OR DBP> or= 110 Labetalol HCl (Labetalol 100 Mg Tablet) 100 mg PO BID [facility]IN[facility] Last Admin: 03/08/23 08:48 Dose: 100 mg Lidocaine HCl (Lidocaine 1% 20 Ml Mdv) 20 ml ID .ONCE PRN PRN Reason: PERINEAL REPAIR Stop: 03/09/23 20:32 Methylergonovine Maleate (Methylergonovine 0.2 Mg/Ml Vial) 0.2 mg IM .ONCE PRN PRN Reason: Hemorrhage Misoprostol (Misoprostol 200 Mcg Tablet) 600 mcg BC .ONCE PRN PRN Reason: Hemorrhage Misoprostol (Misoprostol 200 Mcg Tablet) 800 mcg LA .ONCE PRN PRN Reason: Hemorrhage Nifedipine (Nifedipine 10 Mg Capsule) 10 - 20 mg PO Q20M PRN; Protocol PRN Reason: SBP> or= 160 OR DBP> or= 110 Oxytocin (Oxytocin 10 Unit/Ml Vial) 10 unit IM .ONCE PRN PRN Reason: Step One if no IV access. Sodium Chloride (Sodium Chloride Flush 0.9% 10 Ml Syringe) 10 ml IVP PRN PRN PRN Reason: NEEDED PER PROVIDER ORDERS Last Admin: 03/07/23 04:45 Dose: 10 ml Sodium Chloride (Sodium Chloride Flush 0.9% 10 Ml Syringe) 10 ml IVP Q8H [facility] Last Admin: 03/07/23 04:05 Dose: 10 ml Ascorbic Acid/Elderberry Fruit [Elderberry-Vit C 50-100 mg Chw] 1 each PO DAILY 12/23/20 Cetirizine [ZyrTEC] 10 mg PO DAILY 12/23/20 Cholecalciferol [Vitamin D3] 5,000 unit PO DAILY 12/23/20 Ibuprofen 400 mg PO Q6HR PRN 12/23/20 Magnesium Citrate 100 mg PO DAILY PRN 12/23/20 Venlafaxine ER [Effexor ER] 75 mg ORAL DAILY 12/23/20 buPROPion HCL [Wellbutrin Xl] 300 mg PO DAILY 12/23/20 traZODone [Desyrel] 50 mg ORAL HS PRN 12/23/20 Allergies/Adverse Reactions: Allergies Allergy/AdvReac Type Severity Reaction Status Date / Time Penicillins Allergy Intermediate Anaphylaxis Verified 03/06/23 21:22 sulfamethoxazole Allergy Intermediate Anaphylaxis Verified 03/06/23 21:22 [From Bactrim] trimethoprim [From Bactrim] Allergy Intermediate Anaphylaxis Verified 12/23/20 04:47 apple Allergy Mild Hives Verified 12/23/20 04:47 Anes History & Medical History - Anesthetic History Anesthesia Complications: reports: No previous complications Family history of Anesthesia Complications: Denies Family history of Malignant Hyperthermia: Denies - Medical History Cardiovascular: reports: None Pulmonary: reports: None Gastrointestinal: reports: GERD Urinary: reports: None Neuro: reports: Migraines Musculoskeletal: reports: None Endocrine/Autoimmune: reports: None Blood Disorders: reports: None Skin: reports: Psoriasis Smoking Status: Never smoker - Surgical History Other Past Surgical History: nasal cautery - Obstetrical History : 1 Parity: 0 Events: reports: induced HTN Exam General: Alert, Oriented x3, Cooperative Dental: WNL Mouth Openin Fingerbreadth Neck Mobility: Normal Mallampati classification: II Thyromental Distance: 4-6 cm Respiratory: No respiratory distress Cardiovascular: Regular rate Neurological: Normal speech Mental/Cognitive Status: Alert/Oriented X3, Normal for patient Cognitive Status: Within normal limits Plan Anesthesia Type: Epidural Consent for Procedure(s) Verified and Reviewed: Yes Code Status: Attempt Resuscitation ASA classification: 2-Mild systemic disease Is this case an emergency?: No
[2023-03-08] MEDS ORDERED: fentaNYL 100 MCG/2 ML VIAL IVP PRN (14:53)
[2023-03-08] MEDS ORDERED: NALOXONE 0.4 MG/ML VIAL IVP PRN ×2 (14:53→20:41)
[2023-03-08] MEDS ORDERED: METOCLOPRAMIDE 10 MG/2 ML VIAL IVP PRN ×2 (14:53→20:41)
[2023-03-08] MEDS ORDERED: ONDANSETRON 4 MG/2 ML VIAL IVP PRN ×2 (14:53→20:41)
[2023-03-08] MEDS ORDERED: MORPHINE 2 MG/ML CARPUJECT IVP PRN (14:53)
[2023-03-08] MEDS ORDERED: ATROPINE ABBOJECT 1 MG/10 ML SYRINGE IVP PRN (14:53)
[2023-03-08] MEDS ORDERED: ePHEDrine 50 MG/ML VIAL IVP PRN ×2 (14:53→20:41)
[2023-03-08] MEDS ORDERED: HYDROmorphone 0.5 MG/0.5 ML SYRINGE IVP PRN (14:53)
[2023-03-08] MEDS ORDERED: LACTATED RINGERS 1,000 ML IV SCH ×2 (15:00→22:00)
--- NOTE | 2023-03-08 16:34 | PROVIDER PROGRESS NOTE ---
Labor Progress Note - Uterine Monitoring Uterine Monitoring Mode: positive: IUPC Contraction Frequency (min/apart): 3-5 Contraction Intensity: positive: Moderate to strong Uterine Resting Tone: positive: Soft - Monitoring Monitor Mode: positive: External ultrasound Heart Rate Baseline: 130 Heart Rate Variability: positive: Moderate (6-25 bmp) Accelerations: positive: Present, 15x15 Decelerations: positive: None Strip Review: positive: Category I - Vaginal Exam Dilation (in cm): 7 Effacement (%): 90 Station: -1 - Labor Progress Note Labor Progress Note/Additional Text: Patient received epidural for pain control. Currently 7 cm dilated. Oxytocin recently increased to 10 milliunits/min. Patient tolerating this well. Labor summary: Epidural for pain control. Misoprostol x3 doses for cervical ripening followed by cervical ripening balloon. Amniotomy and oxytocin for augmentation.
[2023-03-08] MEDS: LACTATED RINGERS 1,000 ML IV SCH (19:41)
[2023-03-08] MEDS ORDERED: ROPIVACAINE 0.2% 200 MG/100 ML BAG EP PRN (20:41)
[2023-03-08] MEDS ORDERED: NALBUPHINE 10 MG/ML AMP IVP PRN (20:41)
[2023-03-08] MEDS ORDERED: diphenhydrAMINE INJ 50 MG/ML VIAL IVP PRN (20:41)
[2023-03-08] MEDS ORDERED: DOCUSATE SODIUM 100 MG CAPSULE PO PRN (21:27)
[2023-03-08] MEDS ORDERED: SIMETHICONE CHEW 80 MG TABLET PO PRN (21:27)
--- NOTE | 2023-03-08 21:34 | DELIVERY NOTE ---
Delivery Note - Labor Labor: positive: Augmented by ARM, Augmented by oxytocin - Delivery Method Delivery Method: positive: Vacuum assist - Cervical Ripening Method Cervical Ripening Method: positive: Misoprostil - Presentation Presentation: positive: URBANO - left occiput anterior - Nuchal Cord Nuchal Cord: positive: Present, Reduced - Anesthetic Anesthetic Type: - Amniotic Fluid Description Amniotic Fluid Description: positive: Clear - Vacuum Use Indication for Vacuum Use: positive: Prolonged 2nd stage Type of Vacuum Cup: positive: Cup: Mushroom Type Vacuum Extraction: positive: Successful Number of pop-offs: 0 - Episiotomy Type Episiotomy Type: positive: None - Laceration Laceration: positive: 2nd degree - Suture Suture Type: positive: Vicryl Suture Size: positive: 3-0 - Delivery Outcome Delivery Outcome: positive: Livebirth - : positive: Placed in direct skin contact with mother, [place] used [place] sex: positive: Male - Cord Cord: positive: 3 vessels - Placenta Placenta: positive: Intact - Estimated Blood Loss Estimated Blood Loss (in cc): 300 - Post Delivery Events Post Delivery Events: positive: No post delivery events - Delivery Comments (Free Text/Narrative) Delivery Comments (Free Text/Narrative): Preoperative Diagnoses 37 weeks gestation Gestational hypertension Postoperative Diagnoses Same Status post vacuum-assisted vaginal delivery Delivery of live manuel Patient was a 27-year-old primigravida at 37 weeks gestation who was admitted for induction of labor secondary to gestational hypertension. She received misoprostol for cervical ripening followed by a cervical ripening balloon. After expulsion, she had amniotomy performed and subsequent oxytocin. She received an epidural for pain management. She had intermittent category 2 tracing throughout labor. She progressed to complete push. Delivery Summary: Patient was placed in the dorsal lithotomy position. She initially made good progress, but then had a stall of labor. After pushing for 2 hours, we discussed a vacuum-assisted vaginal delivery and after making the 3-hour isrrael, patient agreed and pediatrics was in attendance. The patient was counseled on the risk of vacuum delivery. We discussed a trial of vacuum delivery with no significant descent we would proceed with section. We discussed that we would give up if no descent occurred after 2 tractions, if delivery did not occur after 4 tractions or if the vacuum detached more than twice. We discussed the risk of cephalhematoma, hemorrhage, nerve injuries, bruises, elevated bilirubin, as well as maternal issues of soft tissue injuries. We discussed that traction alone cannot deliver the baby, we can only assist maternal pushing efforts. The flexion point was identified 3 cm anterior of the posterior fontanelle. head was in the URBANO position. Station was at the introitus. Pressure was increased at the time of her contraction and traction aligned with head expulsion was performed. No pop offs occurred. After several contractions, the head was ready to deliver and the vacuum was removed. Upon maternal pushing the head was delivered atraumatically followed by the anterior shoulder, posterior shoulder, then the remainder of the 's body. A male infant was delivered with APGARS of 8 at 1 minute and 9 at 5 minutes. The was placed on its mother's chest . After the cord finished pulsating, the umbilical cord was clamped times two and cut. The placenta delivered intact with three vessel cord. Placenta was not sent to pathology. Thirty units of Pitocin were added to the IV fluid and allowed to run freely. Uterine massage was performed until uterus was deemed firm. Upon inspection of the perineum, second-degree midline laceration was noted and repaired with a running suture of 3-0 Vicryl. Upon re-inspection the patient was hemostatic. Uterus again massaged and found to be firm. Needle and sponge counts were correct. Patient was stable and allowed to recover in L&D room. was stable and remained in room with mother. Examination of the head showed caput, but not inuries. weight is pending at this time.
[2023-03-09] MEDS: IBUPROFEN 600 MG TABLET PO SCH ×4 (01:19→19:11)
[2023-03-09] MEDS: ACETAMINOPHEN 500 MG TABLET PO SCH ×3 (01:19→16:15)
[2023-03-09] MEDS: LABETALOL 100 MG TABLET PO SCH ×3 (01:19→20:36)
[2023-03-09] MEDS: buPROPion XL 150 MG TABLET PO SCH (08:08)
--- NOTE | 2023-03-09 08:54 | PROVIDER PROGRESS NOTE ---
Subjective - Prog Note Date Prog Note Date: 03/09/23 Prog Note Time: 08:52 - Subjective Subjective: Subjective Patient reports she is doing well. Lochia appropriate. Denies heavy bleeding. Ambulating. Pelvic and abdominal pain well-controlled. Tolerating oral intake. Diet: Regular. Voiding without difficulty. Passing flatus. Denies BM. Patient is bonding with baby in room Breast feeding going well. Denies feeling lightheaded, dizzy or excessively fatigued. Objective General: Alert, oriented, no apparent distress. Cardiovascular: Regular rate. Regular rhythm. Lungs: No increased work of breathing. Abdomen: Uterus firm. Below umbilicus. No guarding or rebound. Extremities: No pain on palpation. No cords palpated. Distal pulses intact. Assessment and Plan day 1. -Routine care -Anticipate discharge tomorrow Gestational hypertension Blood pressure is nonsevere. Improved since delivery. Continue monitoring at this time. Objective - Vital Signs/Intake & Output Vital Signs: Vital Signs x48h Temp Pulse Resp BP BP Pulse Ox 03/09/23 08:10 97.7 F 85 16 122/67 99 03/09/23 03:50 98.5 F 81 20 116/70 03/09/23 01:15 97 18 136/80 H Intake & Output: Intake & Output 03/06/23 03/07/23 03/08/23 03/09/23 23:59 23:59 23:59 23:59 Intake Total 3275 2179.549 430.868 Output Total 875 600 Balance 3275 1304.549 -169.132 - Lab Results Fish Bones: 03/06/23 21:30 03/06/23 21:30
[2023-03-09] MEDS: CETIRIZINE 10 MG TABLET PO SCH (09:11)
[2023-03-10] MEDS: ACETAMINOPHEN 500 MG TABLET PO SCH ×2 (00:01→08:41)
[2023-03-10] MEDS: IBUPROFEN 600 MG TABLET PO SCH ×2 (01:03→07:00)
[2023-03-10] MEDS: CETIRIZINE 10 MG TABLET PO SCH (08:42)
[2023-03-10] MEDS: buPROPion XL 150 MG TABLET PO SCH (08:42)
[2023-03-10] MEDS: LABETALOL 100 MG TABLET PO SCH (08:42)
--- NOTE | 2023-03-10 09:20 | Discharge Plan ---
Discharge Plan Problem Reviewed?: Yes Disposition: Home, Self Care Condition: Good Activity Restrictions: Additional Comments Shower Restrictions: No Weight Bearing: Full Weight Instruction Topics: Vaginal After, Depression No Smoking: If you smoke, Please STOP! Call for help. Follow-up with: Nadia Weir DO [Primary Care Provider] -
--- NOTE | 2023-03-10 09:21 | DISCHARGE SUMMARY ---
"Discharge Summary Admit Date: 03/06/23 Discharge Date: 03/10/23 Discharging Provider: Rich carrera MD Condition at Discharge: Good Discharge Disposition: 01 Home, Self Care - DIAGNOSES Admission Diagnoses: 37 weeks gestation Gestational hypertension Discharge Diagnoses with Status of Each Condition: 37 weeks gestation Gestational hypertension Status post vacuum-assisted vaginal delivery Delivery of live manuel - HPI History of Present Illness: Subjective Patient reports she is doing well. Lochia appropriate. Denies heavy bleeding. Ambulating. Pelvic and abdominal pain well-controlled. Tolerating oral intake. Diet: Regular. Voiding without difficulty. Passing flatus. Denies BM. Patient is bonding with baby in room Breast feeding going well. Denies feeling lightheaded, dizzy or excessively fatigued. Objective General: Alert, oriented, no apparent distress. Cardiovascular: Regular rate. Regular rhythm. Lungs: No increased work of breathing. Abdomen: Uterus firm. Below umbilicus. No guarding or rebound. Extremities: No pain on palpation. No cords palpated. Distal pulses intact. 2+ edema. - CONSULTS | PROCEDURES Consultations: Anesthesia for epidural placement Procedures: Vacuum-assisted vaginal delivery - HOSPITAL COURSE Hospital Course: Patient was admitted at 37 weeks gestation for induction of labor secondary to gestational hypertension. She received misoprostol followed by oxytocin, a mniotomy, epidural for pain control. Patient had a prolonged second stage and underwent a vacuum-assisted vaginal delivery without complication. course was unremarkable for patient and her . Both were discharged on day 2. weight: 2957 g Apgars 8/9. - ALLERGIES Allergies/Adverse Reactions: Allergies Allergy/AdvReac Type Severity Reaction Status Date / Time Penicillins Allergy Intermediate Anaphylaxis Verified 03/06/23 21:22 sulfamethoxazole Allergy Intermediate Anaphylaxis Verified 03/06/23 21:22 [From Bactrim] trimethoprim [From Bactrim] Allergy Intermediate Anaphylaxis Verified 12/23/20 04:47 apple Allergy Mild Hives Verified 12/23/20 04:47 - MEDICATIONS Home Medications: Ambulatory Orders Medication Instructions Recorded Confirmed Ascorbic Acid/Elderberry Fruit 1 each PO DAILY 12/23/20 12/23/20 [Elderberry-Vit C 50-100 mg Chw] Cetirizine [ZyrTEC] 10 mg PO DAILY 12/23/20 12/23/20 Cholecalciferol [Vitamin D3] 5,000 unit PO DAILY 12/23/20 12/23/20 Ibuprofen 400 mg PO Q6HR PRN 12/23/20 12/23/20 Lidocaine Patch 5% [Lidoderm Patch] 1 patch TOP DAILY PRN #10 patch 12/23/20 Magnesium Citrate 100 mg PO DAILY PRN 12/23/20 12/23/20 Venlafaxine ER [Effexor ER] 75 mg ORAL DAILY 12/23/20 12/23/20 Venlafaxine [Effexor] 75 mg PO DAILY #30 tablet 12/23/20 buPROPion HCL [Wellbutrin Xl] 300 mg PO DAILY 12/23/20 12/23/20 traZODone [Desyrel] 50 mg ORAL HS PRN 12/23/20 12/23/20 traZODone [Desyrel] 50 mg PO HS PRN #30 tablet 12/23/20 Labetalol [Trandate] 100 mg PO BID #60 tablet 02/27/23 Ibuprofen [Motrin] 600 mg PO Q6H PRN #30 tab 03/10/23 - LABS Result Diagrams: 03/06/23 21:30 03/06/23 21:30 - FOLLOW UP Follow Up: With Rich Hong MD in 1 week at [facility] - TIME SPENT Time Spent in Discharge (Minutes): 30"
--- NOTE | 2023-03-10 13:43 | Labor Flowsheet ---
Labor Flowsheet Datetime Report Generated by CPN: 03/10/2023 13:43 Datetime: 03/10/2023 08:40 VITAL SIGNS NBP Sys/Susi/Mean (mmHg): 125 : 72 : 86 Pulse: 82 Datetime: 03/08/2023 23:13 Respirations: 16 Datetime: 03/08/2023 23:01 PAIN Pain Scale: 0 Datetime: 03/08/2023 22:31 Temperature Route: Oral Datetime: 03/08/2023 21:19 Medication Comments: epidural pump off Datetime: 03/08/2023 21:10 Stage of : Recovery Patient Care Comments: OBGYN suturing 2nd degree lac Datetime: 03/08/2023 21:01 Comments: See paper strip for markings when pressure in yellow (125 mmHg) and green (450-600 mmHg) zones Datetime: 03/08/2023 21:00 UTERINE ACTIVITY Monitor Mode: Internal Frequency (min): 2.5-3.5 Quality: Strong Duration (sec): 90-130 Pattern: Normal: <= 5 Contractions in 10 Minutes Resting Tone (Palpate): Relaxed Resting Tone IUP (mmHg): 20-35 Intensity IUP (mmHg): 55-95 Pitocin Checklist: No More than 1 Late Deceleration Occurred in Past 30 Minutes; No More than 2 [place] iable Decelerations > 60 Seconds in Duration and decreasing >60 bpm in 30 minutes; No More than 5 Darlin rine Contractions in 10 Minutes for any 20 Minute Interval; Uterus Palpates Soft between Contractions ASSESSMENT A Monitor Mode: External US Monitor Interventions for FHR: Ultrasound Adjusted FHR Baseline Rate : 170 Variability: Minimal - Undetectable to <=5 bpm Accelerations: Prolonged Decelerations: Early; Variable Category: Category II Oxygen Method: Room Air Datetime: 03/08/2023 20:46 LaborFlag: Labor Datetime: 03/08/2023 20:30 Temperature (C): 37.1 [place] Units (mmHg): 200 Contraction Comments: Pitocin not decreased d/t imminent delivery. MD aware of min LTV and no acc els in last 30 min. Datetime: 03/08/2023 20:27 COMMUNICATION Communication: Call/Page Placed to Provider Communication Comments: Phone call to Dr. Sanchez at the request of Dr. Hong for potential vaccu um use Datetime: 03/08/2023 20:12 I/O Interventions: Straight Cath (ml) @ 75 Datetime: 03/08/2023 20:09 Exam by: Dr Hal Datetime: 03/08/2023 20:00 SpO2 (%): 100 Datetime: 03/08/2023 19:15 Patient Position/Activity: Left Tilt Datetime: 03/08/2023 19:10 Nurse Giving Report: Amaragabriela Freed, RN Nurse Receiving Report: Modesta Nola, RN Datetime: 03/08/2023 19:07 MEDICATIONS Pitocin (milliunits): Increased to @ 14 Datetime: 03/08/2023 18:45 Pushing Position: Pushing Lithotomy Datetime: 03/08/2023 18:15 Actions for Decelerations: Blood Pressure Datetime: 03/08/2023 18:08 Station: 2 Datetime: 03/08/2023 17:44 STAGE 2 Pushing: Coached on Pushing; No Urge to Push Pushing Progress: Descent with Pushing Datetime: 03/08/2023 17:40 VAGINAL EXAM Dilatation (cm): 10.0 Effacement (%): 100 Datetime: 03/08/2023 17:36 Provider Notified (Name): Dr. Hal Notification Reason: Status Update Datetime: 03/08/2023 15:12 Vaginal Bleeding: None Cervix, Consistency: Soft Cervix, Position: Midposition Datetime: 03/08/2023 14:33 Epidural Procedure: Loading Dose Datetime: 03/08/2023 14:20 PROCEDURE TIME OUT Procedure Verify: Accurate Procedure Consent Form ANESTHESIA Anesthesia Plans: Epidural Datetime: 03/08/2023 14:19 Epidural Positioning: Sitting Datetime: 03/08/2023 13:28 Pain Assessment Comments: pt tolerating contactions with nitrous Datetime: 03/08/2023 13:15 Pain Presence: Intermittent Pain Type: Contraction Pain Location: Abdomen; Back Pain Relief Measures: Comfort Measures Comfort Measures: Breathing/Relaxation; Hot/Cold Pack; Family Support Datetime: 03/08/2023 13:10 Pain Coping: Other Datetime: 03/08/2023 12:49 TEACHING Instructional Method: Verbal Plan of Care: Plan of Care Discussed Labor/Induction: Augmentation Pain Management: Comfort Measures Medications: Pitocin Datetime: 03/08/2023 12:29 FHR Baseline Changes: No Baseline Change Datetime: 03/08/2023 10:38 Vaginal Exam Comments: stretchy Datetime: 03/08/2023 08:10 Antibiotics: Other Antibiotic @ vancomycin Datetime: 03/08/2023 07:57 MATERNAL ASSESSMENT Level of Consciousness: Alert Headache: Denies Breath Sounds, Left: Clear and Equal Breath Sounds, Right: Clear and Equal Nausea/Vomiting: Denies RUQ Epigastric Pain: Denies Datetime: 03/08/2023 07:47 Amniotic Fluid Color: Clear Amniotic Fluid Amount: Moderate Membrane Comments: up on ball Datetime: 03/08/2023 07:33 Monitor Interventions for UA: IUPC Inserted Datetime: 03/08/2023 05:27 Membrane Status: Ruptured Membranes Rupture Method: Artificial Amniotic Fluid Odor: Normal Datetime: 03/08/2023 02:45 Cervical Ripening Agents: [place] Balloon; Cytotec @ Datetime: 03/07/2023 20:45 DTR's/Clonus: DTRs 1+; No Clonus Datetime: 03/07/2023 13:53 Oxygen Amount (LPM): 10 Datetime: 03/07/2023 09:13 Hygiene: Shower Datetime: 03/07/2023 04:44 PATIENT CARE IV/Blood Work: IV Bolus Given ml @ 500; IV Saline Locked Datetime: 03/07/2023 04:40 Pain Goal: 6 Datetime: 03/06/2023 23:30 Related: Common Discomforts of ; Activity and Rest Datetime: 03/06/2023 21:45 Teaching Comments: Educ pt on spinning babies positions and notify me when ready to do them. Educ FOB lower back counter-pressure if pt starts to get back labor. FOB and pt verb understanding Datetime: 03/06/2023 20:32 Unit Routine: [place] to Room; Call Bello; Bed; Visiting Policy; Unit Personnel; Handwashing; Flu/Ill ness Precautions; Monitoring; Safety/Fall Risk Prevention; Diet/Nutrition Services Datetime: 02/27/2023 13:53 Membranes Ruptured Date/Time: 03/08/2023 05:27 Station Vacuum/Forceps Applied: introitis
[2023-03-10 13:44] VITALS: BP 125/72
== END 2023-03-10 12:40 | disposition home or self-care (01) | DRG 807 ==
LOC: WFO 20:04 → FBP 20:05 → WFO 20:09 → FBP 20:10 → UNDOFXCLISVC 03-07 01:00
PROVIDERS: ADMIT Obstetrics & Gynecology; ATTEND Obstetrics & Gynecology
PROC: 3E033VJ Introduction of Other Hormone into Peripheral Vein, Percutaneous Approach (ICD-10-PCS; 2023-03-06)
PROC: 0U7C7ZZ Dilation of Cervix, Via Natural or Artificial Opening (ICD-10-PCS; 2023-03-07)
PROC: 3E0DXGC Introduction of Other Therapeutic Substance into Mouth and Pharynx, External Approach (ICD-10-PCS; 2023-03-07)
PROC: 10907ZC Drainage of Amniotic Fluid, Therapeutic from Products of Conception, Via Natural or Artificial Opening (ICD-10-PCS; principal; 2023-03-08)
PROC: 10D07Z6 Extraction of Products of Conception, Vacuum, Via Natural or Artificial Opening (ICD-10-PCS; 2023-03-08)
PROC: 0KQM0ZZ Repair Perineum Muscle, Open Approach (ICD-10-PCS; 2023-03-08)
PROC: 10H07YZ Insertion of Other Device into Products of Conception, Via Natural or Artificial Opening (ICD-10-PCS; 2023-03-08)
DX: O13.4 Gestational [pregnancy-induced] hypertension without significant proteinuria, complicating childbirth (principal); Z37.0 Single live birth; O63.1 Prolonged second stage (of labor); O69.81X0 Labor and delivery complicated by cord around neck, without compression, not applicable or unspecified; O70.1 Second degree perineal laceration during delivery; Z3A.37 37 weeks gestation of pregnancy; O99.214 Obesity complicating childbirth; O76 Abnormality in fetal heart rate and rhythm complicating labor and delivery
CPT/HCPCS: 80053; 85025; 86850; 86900; 86901

== ENCOUNTER 2023-03-06 20:10 | Outpatient (CLI) | payer OTHER | END 2023-03-06 20:11 | disposition home or self-care (01) | LOC: WFO 20:10 | PROVIDERS: ATTEND Obstetrics & Gynecology | DX: Z53.9 Procedure and treatment not carried out, unspecified reason (principal) ==